=== PATIENT | female | born 1955 | race Caucasian/White ===

== ENCOUNTER 2021-01-05 09:32 | Day surgery (SDC) | payer BC ==
[~2021-01-05 09:32] MED LIST: Lactated Ringers 1,000 ML IV SCH; Midazolam 1 MG/ML 2 ML SDV ONE; Propofol 200 MG/20 ML SDV ONE; Sodium Chloride 0.9% 10 ML Syringe FLUSH PRN
[2021-01-05] MEDS ORDERED: Propofol 200 MG/20 ML SDV ONE (10:34)
[2021-01-05] MEDS ORDERED: Lidocaine 2% 5 ML SDV ONE (10:34)
[2021-01-05] MEDS ORDERED: Midazolam 1 MG/ML 2 ML SDV ONE (10:34)
--- NOTE | 2021-01-05 10:37 | PCM.PN ---
- General Info Date of Service: 01/05/21 - Review of Systems Systems Review Comment:: 65-year-old female referred by Katerine Hewitt for EGD and colonoscopy. Patient has been having some epigastric pain and is due for colon cancer screening exam. Her recent history and physical is reviewed and no significant changes are noted. The proposed EGD and colonoscopy were discussed with the patient. Indications and expectations were reviewed. Risks such as but not limited to bleeding and GI injury discussed. She agrees to proceed. - Patient Data Vitals - Most Recent: Last Vital Signs Temp 97.9 F 01/05/21 10:20 Pulse 84 01/05/21 10:20 Resp 18 01/05/21 10:20 BP 127/82 01/05/21 10:20 Pulse Ox 93 L 01/05/21 10:20 Weight - Most Recent: 58.06 kg Med Orders - Current: Current Medications Lactated Ringer's (Ringers, Lactated) 1,000 mls @ 125 mls/hr IV ASDIRECTED WILLARD Last Admin: 01/05/21 10:28 Dose: 125 mls/hr Documented by: Sodium Chloride (Sodium Chloride 0.9% 10 Ml Syringe) 10 ml FLUSH ASDIRECTED PRN PRN Reason: Keep Vein Open Discontinued Medications Midazolam HCl (Midazolam 1 Mg/Ml 2 Ml Sdv) Confirm Administered Dose 2 mg .ROUTE .STK-MED ONE Stop: 01/05/21 09:16 Propofol (Propofol 200 Mg/20 Ml Sdv) Confirm Administered Dose 400 mg .ROUTE .STK-MED ONE Stop: 01/05/21 09:16 Sepsis Event Note - Focused Exam Vital Signs: Vital Signs Temp Pulse Resp BP Pulse Ox 01/05/21 10:20 97.9 F 84 18 127/82 93 L - Problem List Review Problem List Initiated/Reviewed/Updated: Yes - Assessment Assessment:: Epigastric pain Colon cancer screening - Plan Plan:: EGD and colonoscopy
--- NOTE | 2021-01-05 11:31 | PCM.OPNOTE ---
- General Post-Op/Procedure Note Date of Surgery/Procedure: 01/05/21 Operative Procedure(s): EGD with Biopsy and Colonoscopy with polypectomy Findings: Mild Gastritis along greater curvature Small Ascending colon polyp Small amount of sigmoid diverticulosis Pre Op Diagnosis: Abdominal pain. Family history of colon cancer Post-Op Diagnosis: Gastritis. Colon Polyp. Sigmoid Diverticulosis Anesthesia Technique: [facility] [place] Primary Surgeon: Edvin Shaw Pathology: Biopsies of duodenum, gastric antrum and colon polyp EBL in mLs: 3 Complications: None Condition: Good
--- NOTE | 2021-01-05 15:46 | OR ---
Date of Procedure: 01/05/2021 PREOPERATIVE DIAGNOSIS: Epigastric pain, colon cancer screening with a family history of colon cancer. POSTOPERATIVE DIAGNOSIS: Gastritis, colon polyp, and sigmoid diverticulosis. OPERATION PERFORMED: Esophagogastroduodenoscopy with biopsy and colonoscopy with polypectomy. INDICATIONS FOR SURGERY: This 65-year-old female was referred for EGD and colonoscopy. She has been having unexplained upper abdominal pain. It has also been several years since her last colon exam. She notes a family history of colon cancer in her mother. FINDINGS: On upper endoscopy, the esophagus and duodenum appeared normal. The stomach appears normal with the exception of a mild degree of inflammation along the greater curvature. No erosions or ulcers were seen. During colonoscopy, a small amount of diverticulosis with medium-sized diverticula without acute inflammation seen in the sigmoid region. One small polyp was noted in the ascending colon, this is 5 mm in size. The remainder of the colon and rectum appeared normal. DESCRIPTION OF PROCEDURE: The patient was taken to the operating room. She was given intravenous sedation, and with her in the left lateral decubitus position, the Olympus gastroscope was advanced through a mouth guard into the oral cavity. Under direct visualization, the scope was carefully advanced through the oropharynx into the esophagus and then down through the esophagus, stomach, and into the duodenum, where examination to the 3rd portion was performed. The duodenum appeared normal, but because of her symptoms, random biopsies of the duodenum were taken. The scope was then withdrawn back into the stomach where full examination including retroflexed examination of the fundus was performed. Random biopsies of the antrum as well as the area of inflammation in the greater curvature are taken to rule out H pylori. The GE junction and esophagus were then examined as the scope is withdrawn. Attention was turned to colonoscopy. Digital rectal exam was performed showing no rectal masses. The Olympus colonoscope was inserted into the rectum. Retroflexed examination of the rectal canal was performed. The scope was then carefully advanced under direct visualization through the entire length of the colon until the cecum was reached. Cecal acquisition was confirmed by noting the normal internal cecal anatomy including the appendiceal orifice and the ileocecal valve. The light was also noted to transilluminate the abdominal wall in the right lower quadrant. After examining the cecum, the scope was slowly withdrawn sequentially re-examining the colonic segments. In the ascending colon, the above-described polyp was identified. This was completely removed with multiple bites of the biopsy forceps. Examination was then continued and completed. After the entire colon, rectum had been fully examined, the scope was removed, and the patient was taken from the operating room in satisfactory condition. ESTIMATED BLOOD LOSS: 3 mL. COMPLICATIONS: None. PROGNOSIS: Good. VILMA Shaw MD /[id number]
== END 2021-01-05 11:40 | disposition home or self-care (01) ==
LOC: LL.SDS 09:32
PROVIDERS: ATTEND Surgery
DX: K57.30 Diverticulosis of large intestine without perforation or abscess without bleeding (principal); K29.70 Gastritis, unspecified, without bleeding; I10 Essential (primary) hypertension; K21.9 Gastro-esophageal reflux disease without esophagitis; F17.210 Nicotine dependence, cigarettes, uncomplicated; J01.40 Acute pansinusitis, unspecified; Z80.0 Family history of malignant neoplasm of digestive organs; Z79.899 Other long term (current) drug therapy; Z98.890 Other specified postprocedural states; Z87.891 Personal history of nicotine dependence
CPT/HCPCS: 00813; J2250; J2704; J7120